=== PATIENT | male | born 1970 | race Caucasian/White ===

== ENCOUNTER 2018-05-25 17:09 | Observation (INO) ==
--- NOTE | 2018-05-25 18:13 | XR ---
EXAM DATE: 05/25/2018 6:02 PM EST AGE/SEX: 47 years / Male INDICATIONS: Short of breath. CLINICAL DATA: This is the patient's initial encounter. Patient reports that signs and symptoms have been present for 3 days and indicates a pain score of 0/10. MEDICAL/SURGICAL HISTORY: Carcinoma, breast. Non Hodgkin Lymphoma. . COMPARISON: POI, XR CHEST PA AND LAT, 10/04/2017. . FINDINGS: A single AP view of the chest demonstrates the lungs to be symmetrically aerated without evidence of mass, infiltrate or effusion. The cardiomediastinal contours are unremarkable. Osseous structures a re intact. CONCLUSION: No acute findings. Electronically signed by: Bradly Henning MD Board Certified Radiologist 05/25/2018 6:12 PM EST
[2018-05-25 18:15] LABS: Baso # (Auto) 0.1 th/mm3 (0.0-0.2); Baso % (Auto) 0.9 % (0.0-2.0); Eos % (Auto) 0.3 % (0.0-4.0); Hematocrit 39.5 % (39.0-51.0); Lymph # (Auto) 2.8 th/mm3 (1.0-4.8); Lymph % (Auto) 26.5 % (9.0-44.0); Mean Corpuscular HGB Conc 35.4 % (32.0-36.0); Mean Corpuscular Hemoglobin 30.6 pg (27.0-34.0); Mean Corpuscular Volume 86.6 fL (80.0-100.0); Mean Platelet Volume 8.3 fL (7.0-11.0); Mono # (Auto) 0.7 th/mm3 (0.0-0.9); Mono % (Auto) 6.5 % (0.0-8.0); Neut % (Auto) 65.8 % (16.0-70.0); Platelet Count 305 th/mm3 (150-450); Red Blood Count 4.57 mil/mm3 (4.50-5.90); Red Cell Distribution Width 12.8 % (11.6-17.2); White Blood Count 10.6 th/mm3 (4.0-11.0)
[2018-05-25 18:28] LABS: INR 1.1 Ratio; Prothrombin Time 10.7 sec (9.8-11.6)
--- NOTE | 2018-05-25 18:31 | ED ---
HPI General Chief Complaint: Arrhythmia / Palpitations Stated Complaint: cardiac Time Seen by Provider: 05/25/18 17:20 Source: patient Mode of arrival: ambulatory Limitations: no limitations History of Present Illness HPI narrative: Patient is a 47-year-old male presenting to emerge department for evaluation of shortness of breath and palpitations. Patient states started 2-3 days ago. He states that he gets a cold sweat, clammy feeling, dizzy. He reports that he has pain/pressure in his left chest wall radiating to his left arm and his left arm feels tingling. Patient states he had similar episode 6 months ago. He reports occasional fluttering feeling in his chest. He states that never has lasted this long, he states his doctor prescribed Adipex for weight loss which she took last Tuesday, Tuesday, Tuesday. He did not take it on Tuesday because he started feeling this way. He also reports that he had been drinking 4+ diet Mountain Dew's on a daily basis. He has not had any of these in 2 days as well. He denies any cardiac history. He states he had atrial fibrillation 10 years ago, this resolved on its own. He reports a history of breast cancer and non-Hodgkin's lymphoma as a child. Symptom onset was fairly sudden, symptoms are moderate, no alleviating factors. His primary doctor did give him a prescription for BuSpar thinking that would help and it has not. He denies any recent travel other than a cruise before [place]. He has no history of DVT or blood clots. Related Data Home Medications Medication Instructions Recorded Confirmed buspirone 30 mg PO BID 05/25/18 05/25/18 ibuprofen 400 mg PO Q4-6H PRN 05/25/18 05/25/18 phentermine 37.5 mg PO DAILY 05/25/18 05/25/18 Allergies Allergy/AdvReac Type Severity Reaction Status Date / Time diphenhydramine Allergy Severe USED A Verified 05/25/18 19:59 CREAM -CAUSES RASH; IV CAUSEA "WEIRD "BEHAVIOR Review of Systems ROS: all other systems reviewed are negative [facility] Medical History Medical History Breast cancer in male (Acute) Non-Hodgkin lymphoma (Acute) Social History Social History Substance History: No History of Abuse Second Hand Smoke Exposure: No Smoking Status: Never smoker How Often Do You Have a Drink Containing Alcohol: Never Recent Travel in [facility] within the Last 8 Weeks: Yes Recent Out of Country Travel within the Last 8 Weeks: No Immunization History Tetanus Immunization: <5 Years Exam Narrative Exam Narrative: GENERAL: Overweight, well-developed, alert male. Presenting in no acute distress. SKIN: Focused skin assessment warm/dry. HEAD: Atraumatic. Normocephalic. EYES: Pupils equal and round. No scleral icterus. No injection or drainage. ENT: No nasal bleeding or discharge. Mucous membranes pink and moist. NECK: Trachea midline. No JVD. CARDIOVASCULAR: Regular rate and rhythm. No murmur appreciated. RESPIRATORY: No accessory muscle use. Clear to auscultation. Breath sounds equal bilaterally. GASTROINTESTINAL: Abdomen soft, non-tender, nondistended. Hepatic and splenic margins not palpable. MUSCULOSKELETAL: No obvious deformities. No clubbing. No cyanosis. No edema. NEUROLOGICAL: Awake and alert. No obvious cranial nerve deficits. Motor grossly within normal limits. Normal speech. PSYCHIATRIC: Appropriate mood and affect; insight and judgment normal. Course Initial Documented Vital Signs Temperature 98.3 F 05/25/18 17:16 Pulse Rate 95 H 05/25/18 17:16 Respiratory Rate 20 05/25/18 17:16 Blood Pressure 142/66 H 05/25/18 17:16 Pulse Oximetry 96 05/25/18 17:16 Last Documented Vital Signs Temperature 98.0 F 05/26/18 00:00 Pulse Rate 73 05/26/18 00:00 Respiratory Rate 12 05/26/18 00:00 Blood Pressure 126/78 05/26/18 00:00 Pulse Oximetry 95 05/26/18 00:00 Medical Decision Making JESSICA Attestation JESSICA supervised visit: Yes Attestation: I, Dr. Garcia, have reviewed the advance practice practitioner' s documentation and am in agreement, met with the patient face to face, made the diagnosis, and the medical decision making was done by me. The patient was initially evaluated by [sonia floyd]. Please see their complete history and physical. MDM Narrative Medical decision making narrative: Patient is a well-appearing 47-year-old male presenting for evaluation of dictations and shortness of breath. Patient's vital signs are stable, he is well oxygenated on room air. He was prescribed Adipex for weight loss which could have exacerbated his symptoms additionally patient drinks several Mountain Dew's daily which has caffeine in it. Labs and imaging ordered and pending. Patient's is at bedside. CBC, chemistry, d-dimer, troponin, CPK, TSH, free T4 within normal limits with no acute findings. Chest x-ray shows no acute disease. EKG which was reviewed by my attending physician, shows normal sinus rhythm. Patient was placed on telemetry while in the emergency department, events were reviewed, patient has had several couplets over the course of the last 2 hours. Patient was given Xanax 0.25 mg x1 dose. Discussed with patient admission to the chest pain center for further evaluation and trending of his cardiac enzymes and possible exercise stress test in the morning. Medical Screen Exam Complete: Yes Emergency Medical Condition: Yes Differential Diagnosis Differential Diagnosis: Metabolic abnormality versus pulmonary embolism versus arrhythmia versus thyroid dysfunction versus medication side effect versus anxiety versus other Medical Records Medical records reviewed: Yes I reviewed the patient's medical records. Lab Data Lab results reviewed: Yes I reviewed the patient's lab results. Result diagrams: 05/25/18 18:00 05/25/18 18:00 Lab Results 05/25/18 05/25/18 05/25/18 Range/Units 18:00 18:00 18:00 WBC 10.6 (4.0-11.0) th/mm3 RBC 4.57 (4.50-5.90) mil/mm3 Hgb 14.0 (13.0-17.0) gm/dL Hct 39.5 (39.0-51.0) % MCV 86.6 (80.0-100.0) fL MCH 30.6 (27.0-34.0) pg MCHC 35.4 (32.0-36.0) % RDW 12.8 (11.6-17.2) % Plt Count 305 (150-450) th/mm3 MPV 8.3 (7.0-11.0) fL Neut % (Auto) 65.8 (16.0-70.0) % Lymph % (Auto) 26.5 (9.0-44.0) % [place] % (Auto) 6.5 (0.0-8.0) % Eos % (Auto) 0.3 (0.0-4.0) % Baso % (Auto) 0.9 (0.0-2.0) % Neut # (Auto) 7.0 (1.8-7.7) th/mm3 Lymph # (Auto) 2.8 (1.0-4.8) th/mm3 [place] # (Auto) 0.7 (0.0-0.9) th/mm3 Eos # (Auto) 0.0 (0.0-0.4) th/mm3 Baso # (Auto) 0.1 (0.0-0.2) th/mm3 WBC Differential . Differential Comment Auto diff final PT (9.8-11.6) sec INR Ratio APTT (23.4-31.7) sec D-Dimer Quant (PE/DVT) Less than 0.19 (0.00-0.50) mg/L FEU Sodium 139 (136-145) meq/L Potassium 3.7 (3.5-5.1) meq/L Chloride 106 (98-107) meq/L Carbon Dioxide 25.4 (21.0-32.0) meq/L Anion Gap 8 (5-15) meq/L BUN 10 (7-18) mg/dL Creatinine 1.06 (0.60-1.30) mg/dL Estimated GFR 76 L (>89) mL/min Random Glucose 86 (74-106) mg/dL Calcium 8.7 (8.5-10.1) mg/dL Magnesium (1.5-2.5) mg/dL Total Bilirubin 0.4 (0.2-1.0) mg/dL AST 20 (15-37) U/L ALT 39 (12-78) U/L Alkaline Phosphatase 120 H (45-117) U/L Total Creatine Kinase (39-308) U/L Troponin I Less than 0.02 L (0.02-0.05) ng/mL Total Protein 7.2 (6.4-8.2) g/dL Albumin 3.8 (3.4-5.0) g/dL Lipase 137 (73-393) U/L TSH (0.358-3.740) uIU/mL Free T4 (0.76-1.46) ng/dL 05/25/18 05/25/18 05/25/18 Range/Units 18:00 18:00 18:00 WBC (4.0-11.0) th/mm3 RBC (4.50-5.90) mil/mm3 Hgb (13.0-17.0) gm/dL Hct (39.0-51.0) % MCV (80.0-100.0) fL MCH (27.0-34.0) pg MCHC (32.0-36.0) % RDW (11.6-17.2) % Plt Count (150-450) th/mm3 MPV (7.0-11.0) fL Neut % (Auto) (16.0-70.0) % Lymph % (Auto) (9.0-44.0) % [place] % (Auto) (0.0-8.0) % Eos % (Auto) (0.0-4.0) % Baso % (Auto) (0.0-2.0) % Neut # (Auto) (1.8-7.7) th/mm3 Lymph # (Auto) (1.0-4.8) th/mm3 [place] # (Auto) (0.0-0.9) th/mm3 Eos # (Auto) (0.0-0.4) th/mm3 Baso # (Auto) (0.0-0.2) th/mm3 WBC Differential Differential Comment PT 10.7 (9.8-11.6) sec INR 1.1 Ratio APTT 31.0 (23.4-31.7) sec D-Dimer Quant (PE/DVT) (0.00-0.50) mg/L FEU Sodium (136-145) meq/L Potassium (3.5-5.1) meq/L Chloride (98-107) meq/L Carbon Dioxide (21.0-32.0) meq/L Anion Gap (5-15) meq/L BUN (7-18) mg/dL Creatinine (0.60-1.30) mg/dL Estimated GFR (>89) mL/min Random Glucose (74-106) mg/dL Calcium (8.5-10.1) mg/dL Magnesium 2.2 (1.5-2.5) mg/dL Total Bilirubin (0.2-1.0) mg/dL AST (15-37) U/L ALT (12-78) U/L Alkaline Phosphatase (45-117) U/L Total Creatine Kinase 100 (39-308) U/L Troponin I (0.02-0.05) ng/mL Total Protein (6.4-8.2) g/dL Albumin (3.4-5.0) g/dL Lipase (73-393) U/L TSH 0.734 (0.358-3.740) uIU/mL Free T4 1.17 (0.76-1.46) ng/dL 05/25/18 05/26/18 Range/Units 21:34 00:31 WBC (4.0-11.0) th/mm3 RBC (4.50-5.90) mil/mm3 Hgb (13.0-17.0) gm/dL Hct (39.0-51.0) % MCV (80.0-100.0) fL MCH (27.0-34.0) pg MCHC (32.0-36.0) % RDW (11.6-17.2) % Plt Count (150-450) th/mm3 MPV (7.0-11.0) fL Neut % (Auto) (16.0-70.0) % Lymph % (Auto) (9.0-44.0) % [place] % (Auto) (0.0-8.0) % Eos % (Auto) (0.0-4.0) % Baso % (Auto) (0.0-2.0) % Neut # (Auto) (1.8-7.7) th/mm3 Lymph # (Auto) (1.0-4.8) th/mm3 [place] # (Auto) (0.0-0.9) th/mm3 Eos # (Auto) (0.0-0.4) th/mm3 Baso # (Auto) (0.0-0.2) th/mm3 WBC Differential Differential Comment PT (9.8-11.6) sec INR Ratio APTT (23.4-31.7) sec D-Dimer Quant (PE/DVT) (0.00-0.50) mg/L FEU Sodium (136-145) meq/L Potassium (3.5-5.1) meq/L Chloride (98-107) meq/L Carbon Dioxide (21.0-32.0) meq/L Anion Gap (5-15) meq/L BUN (7-18) mg/dL Creatinine (0.60-1.30) mg/dL Estimated GFR (>89) mL/min Random Glucose (74-106) mg/dL Calcium (8.5-10.1) mg/dL Magnesium (1.5-2.5) mg/dL Total Bilirubin (0.2-1.0) mg/dL AST (15-37) U/L ALT (12-78) U/L Alkaline Phosphatase (45-117) U/L Total Creatine Kinase 79 78 (39-308) U/L Troponin I Less than 0.02 L Less than 0.02 L (0.02-0.05) ng/mL Total Protein (6.4-8.2) g/dL Albumin (3.4-5.0) g/dL Lipase (73-393) U/L TSH (0.358-3.740) uIU/mL Free T4 (0.76-1.46) ng/dL Imaging Data Radiologist's impression: Chest X-Ray 05/25/18 17:33 CONCLUSION: No acute findings. Discharge Plan Discharge Disposition Patient Disposition: ED Admit(ED Internal Use Only) Discharge Condition Condition: Stable Discharge Order Discharge Orders: ED Use Only Admit Order (Routine); Ordered 05/25/18 Ordered By: Sonia Floyd Discharge Details Diagnosis: Atypical chest pain, Palpitation Physicians Team ED Provider: Josue Garcia ED Midlevel Provider: Sonia Floyd Primary Care Provider: Luis Randall Attending Provider: Trevon Cuenca Status ED Status: Left Department Discharge Information Discharge Date/Time: 05/25/18 22:35
[2018-05-25 18:58] LABS: Alanine Aminotransferase 39 U/L (12-78)
[2018-05-25 19:04] LABS: Alkaline Phosphatase 120 U/L (45-117); Total Protein 7.2 g/dL (6.4-8.2)
--- NOTE | 2018-05-25 19:04 | ECG ---
Date Performed: 05/25/2018 Time Performed: 17:30:22 PTAGE: 47 years EKG: Marked baseline artifact Sinus rhythm NORMAL ECG No definite change within the constraints of artifact. PREVIOUS TRACING : 11/29/2013 08.44 DOCTOR: Agapito Hogan Interpretating Date/Time 05/25/2018 19:02:45
[2018-05-25 19:11] LABS: Albumin 3.8 g/dL (3.4-5.0); Anion Gap 8 meq/L (5-15); Aspartate Aminotransferase 20 U/L (15-37); Blood Urea Nitrogen 10 mg/dL (7-18); Calcium 8.7 mg/dL (8.5-10.1); Carbon Dioxide 25.4 meq/L (21.0-32.0); Chloride 106 meq/L (98-107); Glomerular Filtration Rate 76 mL/min (>89); Glucose,Random 86 mg/dL (74-106); Lipase 137 U/L (73-393); Magnesium 2.2 mg/dL (1.5-2.5); Potassium 3.7 meq/L (3.5-5.1); Sodium 139 meq/L (136-145)
[2018-05-25 19:29] LABS: Free T4 (Free Thyroxine) 1.17 ng/dL (0.76-1.46); Thyroid Stimulating Hormone 0.734 uIU/mL (0.358-3.740)
[2018-05-25] MEDS ORDERED: ALPRAZolam 0.25 MG Tablet PO ONE (19:37)
[2018-05-25] MEDS ORDERED: Temazepam 15 MG Capsule PO PRN (20:25)
[2018-05-25] MEDS ORDERED: Acetaminophen 500 MG Tablet PO PRN (20:25)
[2018-05-25 22:35] LABS: Creatine Kinase 79 U/L (39-308)
[2018-05-26 01:15] LABS: Creatine Kinase 78 U/L (39-308)
[2018-05-26] MEDS ORDERED: Ibuprofen 400 MG Tablet PO ONE (07:57)
--- NOTE | 2018-05-26 09:06 | P.HPCA ---
History of Present Illness Primary Care Physician: Luis Randall MD Chief Complaint: Nonexertional dyspnea History of Present Illness: 47 year old male with history of hyperlipidemia, breast cancer (2013), atrial fibrillation, and non-Hodgkin's lymphoma as a child presents to ER for further evaluation of nonexertional dyspnea. Onset 4 days ago. Recently started new medication, Adipex, for weight lost. Started first dose on May 16. Noticed his resting heart rate slightly elevated prior to starting medication and within a few days of starting medication resting heart rate ranged between 110- 120. Stopped medication then noted nonexertional dyspnea while watching television. Described as "not being able to take a deep breath." Did not hurt to take a deep breath. Denies history of PE or DVT's. No recent illness, fever, or cough. No associated chest pain. Intermittently would feel flushed and diaphoretic during dyspnea episodes. Expiratory wheeze at times also noted. No particular movement, position, or activity would make dyspnea better or worse. Endorses slightly similar dyspnea 6 months ago. Echocardiogram completed during this time reported to be normal. Seen his primary care provider Tuesday and has pending outpatient pulmonary function testing scheduled. No current dyspnea. Stopped statin medication one week ago due to above symptoms. Past cardiac testing No recent stress testing. Echocardiogram 6 months reported to be normal. 09/12/2006 Cardiac catheterization (Dr. Spencer) Conclusion: 1. Angiographically mild 1 vessel coronary artery disease and a right dominant system. 2. Normal left ventricular systolic function, ejection fraction 60%. 3. Elevated left ventricular end-diastolic pressure suggestive of diastolic dysfunction. 4. Recommended medical management of the coronary artery disease, arrhythmia and diastolic dysfunctions. Social history Known hyperlipidemia. No known diabetes, hypertension, or coronary artery disease. Lifelong nonsmoker. No alcohol or recreational drug use. with children. 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 Endorses sedentary lifestyle aside from walking during working hours. Family history Noncontributory early onset cardiovascular disease. - Diagnosis (1) Dyspnea, unspecified (2) Morbid obesity with BMI of 40.0-44.9, adult (3) Hyperlipidemia [facility] - History History Provided By: Patient - Medical History Medical History: Medical History (Last Updated 05/26/18 @ 08:53 by JESÚS Mosley) Atrial fibrillation Hyperlipidemia Obesity Renal calculi Breast cancer in male Non-Hodgkin lymphoma - Surgical History Surgical History: Surgical History (Last Updated 05/26/18 @ 08:53 by JESÚS Mosley) H/O mastectomy - Social History I have reviewed the patient's Social History: Yes - Tobacco History Second Hand Smoke Exposure: No Tobacco Use In Past 30 Days: No Smoking Status: Never smoker - Alcohol History How Often Do You Have a Drink Containing Alcohol: Never - Substance Use History Substance History: No History of Abuse - Travel History History of Recent Travel: Yes (Cruise to [facility] end of April) Recent Travel in the [facility] Within the Last 8 Weeks: Yes Recent Travel Out of the Country Within the Last 8 Weeks: No - Immunization History Tetanus Immunization: <5 Years Medications and Allergies Active Medications: Active Medications Acetaminophen (Tylenol) 500 mg PO Q4H PRN PRN Reason: HEADACHE Last Admin: 05/26/18 05:38 Dose: 500 mg Sodium Chloride (Ns Flush) 2 ml IV.FLUSH UNSCH PRN PRN Reason: FLUSH AFTER USING IV ACCESS Sodium Chloride (Ns Flush) 2 ml IV.FLUSH BID BE Last Admin: 05/25/18 21:35 Dose: 2 ml Sodium Chloride (Ns Flush) 2 ml IV.FLUSH PRN PRN PRN Reason: FLUSH AFTER USING IV ACCESS Temazepam (Restoril) 15 mg PO HS PRN PRN Reason: INSOMNIA Last Admin: 05/25/18 23:11 Dose: 15 mg Allergies Allergy/AdvReac Type Severity Reaction Status Date / Time diphenhydramine Allergy Severe USED A Verified 05/25/18 19:59 CREAM -CAUSES RASH; IV CAUSEA "WEIRD "BEHAVIOR Home Medications Medication Instructions Recorded Confirmed Type buspirone 30 mg PO BID 05/25/18 05/25/18 History ibuprofen 400 mg PO Q4-6H PRN 05/25/18 05/25/18 History phentermine 37.5 mg PO DAILY 05/25/18 05/25/18 History Exam Vital signs: Vital Signs 05/25/18 17:16 05/25/18 17:18 05/25/18 17:33 Temperature 98.3 F Pulse Rate 95 H 78 82 Respiratory Rate 20 18 18 Blood Pressure 142/66 H 124/73 Pulse Oximetry 96 98 98 05/25/18 18:16 05/25/18 19:00 05/25/18 20:00 Temperature Pulse Rate 82 63 72 Respiratory Rate 18 20 19 Blood Pressure 115/62 115/64 122/65 Pulse Oximetry 97 98 98 05/25/18 21:00 05/26/18 00:00 05/26/18 03:57 Temperature 98.0 F 97.7 F Pulse Rate 66 73 69 Respiratory Rate 15 12 12 Blood Pressure 121/63 126/78 122/80 Pulse Oximetry 97 95 97 05/26/18 08:00 Temperature 97.6 F Pulse Rate 76 Respiratory Rate 16 Blood Pressure 134/85 Pulse Oximetry 96 Intake & Output 05/25/18 05/26/18 05/26/18 18:59 06:59 18:59 Weight 117.934 kg 119.4 kg Other: # Voids 2 Date of Last Bowel Movement 05/26/18 Weight On Admission 117.934 kg Narrative: GENERAL: Alert WN, WD, NAD, pleasant, obese, male HEAD: NC, AT EYES: Sclera clear, conjunctiva without injection, pupils equal and round ENT: Mucous membranes pink and moist NECK: Supple, no masses, trachea midline CV: RRR, without murmur, rub, gallop. No JVD. No carotid bruits. RESP: Clear lungs throughout bilateral, no crackles, wheeze, rhonchi, symmetrical chest rise, nonlabored, able to speak in full sentences ABD: Soft, NT, ND, no masses, positive bowel tones EXT: Pulses +2x4, no dependent edema MS: Normal tone x4 extremities, nontender, no obvious deformities, full range of motion NEURO: Motor strength 5/5 PSYCH: A+O x3, pleasant affect, appropriate speech, mood, insight and judgment SKIN: Normal turgor, normal texture, no lesions, no rashes, brisk cap refill, even hair distribution Results 05/25/18 18:00 05/25/18 18:00 Cardiac Enzymes 05/25/18 05/25/18 05/26/18 Range/Units 18:00 21:34 00:31 AST 20 (15-37) U/L Troponin I Less than 0.02 L Less than 0.02 L Less than 0.02 L (0.02-0.05) ng/mL Coagulation 05/25/18 Range/Units 18:00 PT 10.7 (9.8-11.6) sec APTT 31.0 (23.4-31.7) sec CBC 05/25/18 Range/Units 18:00 WBC 10.6 (4.0-11.0) th/mm3 RBC 4.57 (4.50-5.90) mil/mm3 Hgb 14.0 (13.0-17.0) gm/dL Hct 39.5 (39.0-51.0) % Plt Count 305 (150-450) th/mm3 Neut # (Auto) 7.0 (1.8-7.7) th/mm3 Lymph # (Auto) 2.8 (1.0-4.8) th/mm3 [place] # (Auto) 0.7 (0.0-0.9) th/mm3 Eos # (Auto) 0.0 (0.0-0.4) th/mm3 Baso # (Auto) 0.1 (0.0-0.2) th/mm3 Comprehensive Metabolic Panel 05/25/18 Range/Units 18:00 Sodium 139 (136-145) meq/L Potassium 3.7 (3.5-5.1) meq/L Chloride 106 (98-107) meq/L Carbon Dioxide 25.4 (21.0-32.0) meq/L BUN 10 (7-18) mg/dL Creatinine 1.06 (0.60-1.30) mg/dL Calcium 8.7 (8.5-10.1) mg/dL AST 20 (15-37) U/L ALT 39 (12-78) U/L Alkaline Phosphatase 120 H (45-117) U/L Total Protein 7.2 (6.4-8.2) g/dL Albumin 3.8 (3.4-5.0) g/dL Intake and Output 05/25/18 05/26/18 05/26/18 22:59 06:59 14:59 Other: # Voids 2 Date of Last Bowel Movement 05/26/18 Weight 117.934 kg 119.4 kg Weight On Admission 117.934 kg - Imaging and Cardiology Imaging: Impressions Chest X-Ray 05/25/18 17:33 CONCLUSION: No acute findings. EKG interpretations - EKG EKG results cardiology: sinus rhythm, normal axis, normal QRS, normal ST/T Caprini VTE Risk Assessment Caprini VTE Risk Assessment: No/Low Risk (score <= 1) Caprini Risk Assessment Model: Point Value = 1 Point Value = 2 Point Value = 3 Point Value = 5 Age 41-60 Minor surgery BMI > 25 kg/m2 Swollen legs Varicose veins or History of unexplained or recurrent spontaneous Oral contraceptives or hormone replacement Sepsis (< 1 month) Serious lung disease, including pneumonia (< 1 month) Abnormal pulmonary function Acute myocardial infarction Congestive heart failure (< 1 month) History of inflammatory bowel disease Medical patient at bed rest Age 61-74 Arthroscopic surgery Major open surgery (> 45 min) Laparoscopic surgery (> 45 min) Malignancy Confined to bed (> 72 hours) Immobilizing plaster cast Central venous access Age >= 75 History of VTE Family history of VTE Factor V Leiden Prothrombin [id number] Lupus anticoagulant Anticardiolipin antibodies Elevated serum homocysteine Heparin-induced thrombocytopenia Other congenital or acquired thrombophilia Stroke (< 1 month) Elective arthroplasty Hip, pelvis, or leg fracture Acute spinal cord injury (< 1 month) Prophylaxis Regimen: Total Risk Factor Score Risk Level Prophylaxis Regimen 0-1 Low Early ambulation 2 Moderate Order ONE of the following: *Sequential Compression Device (SCD) *Heparin 5000 units SQ BID 3-4 Higher Order ONE of the following medications: *Heparin 5000 units SQ TID *Enoxaparin/Lovenox 40 mg SQ daily (WT < 150 kg, CrCl > 30 mL/min) *Enoxaparin/Lovenox 30 mg SQ daily (WT < 150 kg, CrCl > 10-29 mL/min) *Enoxaparin/Lovenox 30 mg SQ BID (WT < 150 kg, CrCl > 30 mL/min) AND/OR *Sequential Compression Device (SCD) 5 or more Highest Order ONE of the following medications: *Heparin 5000 units SQ TID (Preferred with Epidurals) *Enoxaparin/Lovenox 40 mg SQ daily (WT < 150 kg, CrCl > 30 mL/min) *Enoxaparin/Lovenox 30 mg SQ daily (WT < 150 kg, CrCl > 10-29 mL/min) *Enoxaparin/Lovenox 30 mg SQ BID (WT < 150 kg, CrCl > 30 mL/min) AND *Sequential Compression Device (SCD) Assessment and Plan - Assessment (1) Dyspnea, unspecified Code(s): R06.00 - Dyspnea, unspecified Status: Acute Plan: Admitted to chest pain center. ACS ruled out with 3 sets of EKGs and cardiac enzymes. Will be seen and evaluated by Dr. Trevon Cuenca. Nonexertional dyspnea unlikely cardiac related with only risk factors hyperlipidemia. Lifelong non-smoker no history of asthma. Likely will proceed with exercise cardiac stress test this morning. Discussed importance of keeping follow-up pulmonary function testing with primary care provider. (2) Morbid obesity with BMI of 40.0-44.9, adult Code(s): E66.01 - Morbid (severe) obesity due to excess calories; Z68.41 - Body mass index (BMI) 40.0-44.9, adult Status: Chronic Plan: Discussed weight lost methods including diet and incorporating daily activity. Patient has decided to stop adipex weight lost drug at this time. (3) Hyperlipidemia Code(s): E78.5 - Hyperlipidemia, unspecified Status: Chronic Plan: Encouraged restarting statin medication upon discharge. H&P: Quality - VTE Deep Vein Thrombosis/Pulmonary Embolism Present on Admission: No (1) Dyspnea, unspecified Qualifiers: Dyspnea type: unspecified Qualified Code(s): R06.00 - Dyspnea, unspecified (3) Hyperlipidemia Qualifiers: Hyperlipidemia type: unspecified Qualified Code(s): E78.5 - Hyperlipidemia, unspecified
--- NOTE | 2018-05-26 10:33 | TR ---
Date Performed: 05/26/2018 Time Performed: 09:45:46 DOCTOR: Trevon Cuenca DRUG LIST: CLINICAL HISTORY: REASON FOR TEST: REASON FOR ENDING: OBSERVATION: CONCLUSION: Jorge protocol completed. Stopped sec to reaching target heart rate. Max HR Achieve d=85.0% Maximum TI=242 Maximum ED=559/85 Total Exercise Time=4:34. No reprod chest discomfort. No ect opy. Normal bp response. Fair exercise tolerance. Upsloping st segments. Recovery quick and unrremark able. COMMENTS: Conclusion: Normal treadmill exercise. No evidence of ischemia.
--- NOTE | 2018-05-26 13:35 | ECG ---
Date Performed: 05/26/2018 Time Performed: 00:38:19 PTAGE: 47 years EKG: Sinus rhythm NORMAL ECG PREVIOUS TRACING : 05/25/2018 21.38 Since previous tracing, no significant change noted DOCTOR: Trevon Cuenca Interpretating Date/Time 05/26/2018 13:33:53
--- NOTE | 2018-05-26 13:35 | ECG ---
Date Performed: 05/25/2018 Time Performed: 21:38:56 PTAGE: 47 years EKG: Sinus rhythm NORMAL ECG PREVIOUS TRACING : 05/25/2018 17.30 Since previous tracing, no significant change noted DOCTOR: Trevon Cuenca Interpretating Date/Time 05/26/2018 13:33:28
== END 2018-05-26 11:24 | disposition home or self-care (01) ==
LOC: NEPE 17:09 → NEDA 17:09 → NEPGCP 22:35
DX: Z68.41 Body mass index [BMI] 40.0-44.9, adult; R06.00 Dyspnea, unspecified; Z82.49 Family history of ischemic heart disease and other diseases of the circulatory system; C50.929 Malignant neoplasm of unspecified site of unspecified male breast; E78.5 Hyperlipidemia, unspecified; Z87.442 Personal history of urinary calculi; R07.89 Other chest pain; C85.90 Non-Hodgkin lymphoma, unspecified, unspecified site; I48.91 Unspecified atrial fibrillation; E66.01 Morbid (severe) obesity due to excess calories
CPT/HCPCS: 71010; 71045; 80053; 82550; 83690; 83735; 84439; 84443; 84484; 85025; 85379; 85610; 85730; 93005; 93017; 99285; G0378